=== PATIENT | male | born 2000 | race Caucasian/White ===

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

== ENCOUNTER → 2021-08-15 | Outpatient (CLI) | payer BC | END | disposition home or self-care (01) | LOC: LAB SHORT 12:47 → LAB 12:47 | DX: J03.90 Acute tonsillitis, unspecified (principal) | CPT/HCPCS: 87081 ==